=== PATIENT | male | born 1955 | race African-American/Black ===

== ENCOUNTER 2024-02-13 06:11 | Day surgery (SDC) | payer MEDICARE, SELFPAY ==
[2024-02-13] VITALS (15 sets, daily range): BP systolic 117–160; BP diastolic 70–85; BMI 31.4
[2024-02-13 06:58] LABS: Glucose - Point of Care 170 mg/dl (70-99)
[2024-02-13] MEDS: NSS 233 ML IV (07:11)
--- NOTE | 2024-02-13 09:14 | ITS.CL.CATH ---
Automatic Buffing Wheel Former - Catheterization
Cardiac Catheterization
Procedure Report:
CARDIAC CATHETERIZATION REPORT
Date of Procedure: 02/13/2024
Referring: Emeka Solis DO
Indication: Worsening exertional dyspnea/abnormal stress test with history circumflex stent 2021
HEMODYNAMIC DATA
AO: 101/63
LV: Not done
LEFT VENTRICULOGRAPHY: Not performed
CORONARY ANGIOGRAPHY
Dominance: Right
Left Main: Normal
LAD: Focal 60% stenosis in the distal part of the mid LAD with otherwise mild luminal irregularities in the LAD system
Circumflex: 50% mid circumflex stenosis distal to the takeoff of the small OM1 and proximal to the mid circumflex stent placed in October 2022 which spans the takeoff of the large OM 2. The stent itself is widely patent with no restenosis. The
remainder of the circumflex proper has trivial luminal disease. The large OM 2 which had ostial plaque shift at the time of the 2021 PCI resulting in the need for ostial balloon angioplasty through the side struts of the circumflex stent looks good
with 30-40% ostial stenosis similar to its appearance at the conclusion of the stent procedure in 2021. The circumflex gives rise to a small OM 3 and then several moderate-sized left posterolateral branches
RCA: Dominant vessel with smooth 40-50% proximal stenosis similar in its appearance to the prior study from 2021. The remainder of the RCA system has mild luminal disease.
FloWire assessment: At the conclusion of the diagnostic study, we evaluated the circumflex and LAD disease with FloWire. Heparin was used for anticoagulation. A 6 [place] EBU 3.5 guide catheter was used. A JUNIQE flow wire was advanced distal to
the circumflex disease. iFR measurements were 1.0 and 1.0 consistent with no flow limitation at all. The wire was withdrawn back into the LAD and directed down into the distal LAD. iFR measurements were 0.84 and 0.85 consistent with flow-limiting
disease. Slow pullback demonstrated the drop in Pd/Pa to be at the site of the 60% mid LAD lesion. Accordingly the decision was made to stent the mid LAD lesion.
Angioplasty: Direct stenting was accomplished with a 2.75 x 15 Xience BRENDA deployed at 14 emelyn then postdilated with a 3.0 NC trek to 16 emelyn. The angiographic result was outstanding. There were no procedural complications.
Closure Device: None-the procedure was performed via the right radial artery. The Spike's test was normal prior to the procedure.
Radiation (mGy): 704
DAP (cm2.Gy): 62.2
Fluoroscopy time: 10.6 minutes
CONCLUSIONS
1: Multivessel CAD as described-the circumflex lesion is nonflow limiting while the mid LAD lesion is flow-limiting by FloWire assessment
2: Successful stenting of 60% mid LAD stenosis (IFR positive) using 2.75 x 15 Xience BRENDA
3. Continue DAPT for minimum 12 months
Copy to: Emeka Solis DO, Radhames Garcia DO
Yuniel Rossi MD, [facility], [facility]
[2024-02-13 11:30] LABS: ACT-LR - POC > 397 Seconds (116-155)
--- NOTE | 2024-02-13 14:16 | W.PN.UPDATE ---
Update Note
Progress Note Update
Pt seen post LAD PCI. Right radial cath site without ht/bleeding, non tender. OOB to chair. Post EKG NSR, NSSTT abn as before, no acute changes. To remain on uninterrupted DAPT w/asa, plavix. Hold metformin 48h post dye load. Cardiac rehab
consulted. Followup at [facility] arranged. Home today if cath site/tele remain stable.
== END 2024-02-13 14:54 | disposition home or self-care (01) ==
LOC: CATH 06:11
PROVIDERS: ATTENDING PHYSICIAN Internal Medicine Cardiovascular Disease; FAMILY PHYSICIAN Family Medicine; OTHER PHYSICIAN Internal Medicine Cardiovascular Disease
DX: I25.10 Atherosclerotic heart disease of native coronary artery without angina pectoris (principal); Z95.5 Presence of coronary angioplasty implant and graft; I10 Essential (primary) hypertension; E11.9 Type 2 diabetes mellitus without complications; G47.33 Obstructive sleep apnea (adult) (pediatric); Z87.891 Personal history of nicotine dependence; Z79.82 Long term (current) use of aspirin; Z79.84 Long term (current) use of oral hypoglycemic drugs; Z79.02 Long term (current) use of antithrombotics/antiplatelets
CPT/HCPCS: C1769; C1725; C1887; 82962; 85347; 93005; 93454; 93571; 93572; C1874; C1894; C9600; Q9967